=== PATIENT | male | born 1970 | race Native Hawaiian/Other Pacific Islander ===

== ENCOUNTER 2017-06-11 14:11 | Inpatient (IN) | payer OTHER ==
[~2017-06-11] VITALS: Ht 188 cm; Wt 129.5 kg
[2017-06-11 14:23] VITALS: BP 98/44; TEMP 98.9
[2017-06-11 15:55] LABS: PLATELET COUNT 126 K/uL (142-355)
[2017-06-11 16:22] LABS: POTASSIUM 3.2 mmol/L (3.6-5.2); SODIUM 134 mmol/L (136-145)
[2017-06-11 20:20] VITALS: BP 103/60
[2017-06-11 20:46] VITALS: BP 104/64
[2017-06-11 21:31] VITALS: BP 252/160
[2017-06-11 22:31] VITALS: BP 126/71
[2017-06-12] VITALS (7 sets, daily range): BP systolic 78–110; BP diastolic 42–80; TEMP 98.7–99.7; Ht 188 cm; Wt 129.5 kg
[2017-06-12 09:38] LABS: PLATELET COUNT 65 K/uL (142-355)
[2017-06-12 09:40] LABS: POTASSIUM 3.3 mmol/L (3.6-5.2)
[2017-06-13 00:16] VITALS: BP 94/53; TEMP 98
[2017-06-13 04:00] VITALS: BP 98/60; TEMP 98.1
[2017-06-13 06:11] LABS: POTASSIUM 3.2 mmol/L (3.6-5.2)
[2017-06-13 06:24] LABS: PLATELET COUNT 68 K/uL (142-355)
[2017-06-13 08:00] VITALS: BP 103/60; TEMP 97.8
[2017-06-13 12:00] VITALS: BP 102/58; TEMP 98
[2017-06-13 16:00] VITALS: BP 106/59; TEMP 98.7
[2017-06-13 20:00] VITALS: BP 113/60; TEMP 98.2
[2017-06-14] VITALS (7 sets, daily range): BP systolic 12–115; BP diastolic 57–71; TEMP 97.7–98.8
[2017-06-14 06:30] LABS: PLATELET COUNT 59 K/uL (142-355)
[2017-06-14 06:33] LABS: POTASSIUM 3.3 mmol/L (3.6-5.2)
[2017-06-15 04:00] VITALS: BP 108/74; TEMP 97.9
[2017-06-15 05:20] LABS: PLATELET COUNT 57 K/uL (142-355)
[2017-06-15 05:56] LABS: POTASSIUM 2.6 mmol/L (3.6-5.2)
[2017-06-15 08:00] VITALS: BP 106/67; TEMP 97.6
[2017-06-15 12:26] VITALS: BP 105/46; TEMP 97.4
[2017-06-15 16:00] VITALS: BP 119/79; TEMP 97.6
[2017-06-15 16:38] LABS: PLATELET COUNT 68 K/uL (142-355)
[2017-06-15 16:46] LABS: POTASSIUM 3.2 mmol/L (3.6-5.2)
[2017-06-15 20:00] VITALS: BP 126/67; TEMP 97.7
[2017-06-16] VITALS: BP 113/63; TEMP 97.8
[2017-06-16 04:00] VITALS: BP 132/75; TEMP 97.7
[2017-06-16 06:11] LABS: PLATELET COUNT 72 K/uL (142-355)
[2017-06-16 06:50] LABS: POTASSIUM 3.1 mmol/L (3.6-5.2)
[2017-06-16 08:00] VITALS: BP 104/63; TEMP 98.8
[2017-06-16] MEDS ORDERED: ZINC220C4 PO (10:33)
[2017-06-16] MEDS ORDERED: MAGN400T4 PO (10:33)
[2017-06-16] MEDS ORDERED: TAMS0.4C PO (10:33)
[2017-06-16] MEDS ORDERED: SPIR50TA8 PO (10:33)
[2017-06-16] MEDS ORDERED: CEPH500C20 PO (10:33)
== END 2017-06-16 12:10 | disposition home or self-care (01) | DRG 602 ==
LOC: ED 14:11 → MED/SURG 15:37
PROVIDERS: Family Medicine; Internal Medicine; ADMIT Specialist
PROC: 30233N1 Transfusion of Nonautologous Red Blood Cells into Peripheral Vein, Percutaneous Approach (ICD-10-PCS; principal; 2017-06-13)
DX: L03.116 Cellulitis of left lower limb (principal); I50.33 Acute on chronic diastolic (congestive) heart failure; K92.1 Melena; R09.02 Hypoxemia; R33.8 Other retention of urine; E87.6 Hypokalemia; E83.42 Hypomagnesemia; G44.89 Other headache syndrome; D64.89 Other specified anemias
CPT/HCPCS: 36415; 36430; 36600; 51702; 80053; 80307; 80320; 81000; 82150; 82550; 82553; 82805; 83605; 83690; 83735; 83880; 84484; 85014; 85018; 85027; 85379; 86850; 86900; 86901; 86922; 87040; 93005; 94640; 94664; 94760; 96365; 96372; 99284; J0696; J1644; J1940; J2060; J2930; J3475; J3480; P9016; Q9963

== ENCOUNTER 2017-07-08 14:08 | Observation (INO) | payer OTHER ==
[~2017-07-08] VITALS: Ht 188 cm; Wt 121.8 kg
[~2017-07-08 14:08] MED LIST: CEPH500C20 PO; MAGN400T4 PO; SPIR50TA8 PO; TAMS0.4C PO; ZINC220C4 PO
[2017-07-08 15:00] VITALS: BP 124/77
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
[2017-07-08 16:00] VITALS: BP 132/84
--- NOTE | 2017-07-08 16:16 | NUR ---
PHONE CALL TO [facility],TALKED WITH TONIE TURPIN LPN. PSYCH CONSULT FOR DR CARABALLO. WILL SEND INFO REQUESTED TO [facility].
--- NOTE | 2017-07-08 16:22 | NUR ---
MEDICATION CLARIFICATION PER PHONE CALL TO DR JOHNSON OFFICE.LORENZO BANKS TALKED WITH DR FRIEND. NEW ORDERS.PT NOT ALLERGIC ZOFRAN PER PT & DR JOHNSON STAFF.
[2017-07-08 16:30] VITALS: BP 124/77; TEMP 98.8; Ht 188 cm; Wt 121.8 kg
[2017-07-08 16:38] LABS: PLATELET COUNT 131 K/uL (142-355)
[2017-07-08 16:53] LABS: PARTIAL THROMBOPLASTIN TIME 24.9 SECONDS (24.5-33.6)
--- NOTE | 2017-07-08 16:58 | NUR ---
INFO FOR PSYCH CONSULT TO DR CARABALLO/[place].
[2017-07-08 17:00] VITALS: BP 131/85
--- NOTE | 2017-07-08 17:09 | NUR ---
RESIRATORY THERAPY AT PATIENTS BEDSIDE GIVING SMOKING EDUCATION
--- NOTE | 2017-07-08 18:04 | NUR ---
PT SITTING UP IN BED WATCHING TV.
--- NOTE | 2017-07-08 18:47 | NUR ---
PATIENTS FSBS 119 PATIENT DRINKING THE SOUP OF CLEAR LIQUID DIET
--- NOTE | 2017-07-08 19:00 | NUR ---
PATIENT WATCHING TV AT PRESENT TIME. NO ACUTE DISTRESS NOTED. WILL CONTINUE TO MONITOR.
[2017-07-08 20:00] VITALS: BP 125/77
--- NOTE | 2017-07-08 20:00 | NUR ---
RECEIVED PATIENT IN PCU BED #1. PATIENT IS [id number]. SHIFT ASSESSMENT COMPLETED AT THIS TIME. PATIENT IS WATCHING TV WITH NO ACUTE DISTRESS NOTED. IV 18G NOTED TO THE LEFT WRIST SALINE LOCKED WITH NO S/S OF INFILTRATION NOTED. BED LOCKED IN LOW POSITION,SIDERAILS UP X2, CALL JIMENEZ WITHIN REACH.
--- NOTE | 2017-07-08 20:15 | NUR ---
HERE TO SEE PATIENT. 1013 FORM SIGNED. UPDATED ON PLACEMENT/PSYCH EVALUATION INFORMED INFORMATION SENT TO [facility]. STATED PATIENT MOSTLY LIKELY WOULD NOT QUALIFY DUE TO PATIENT'S AGE. INFORMED INFORMATION WOULD BE FAXED TO OTHER MENTAL HEALTH FACILITIES.
--- NOTE | 2017-07-08 20:30 | NUR ---
BILATERAL COMPRESSION STOCKING PLACED ON PATIENT WITHOUT DIFFICULTY. PATIENT TOLERATED WELL. BLE ELEVATED WELL.
--- NOTE | 2017-07-08 21:30 | NUR ---
CALLED BY THE [facility], FAX NUMBER GIVEN TO FAX PATIENT INFORMATION FOR POSSIBLE PLACEMENT.
--- NOTE | 2017-07-08 21:46 | NUR ---
PATIENT IS RESTING WITH EYES CLOSED AT THIS TIME. NO ACUTE DISTRESS NOTED. WILL CONTINUE TO MONITOR NEEDED.
[2017-07-08 22:00] VITALS: BP 122/80
--- NOTE | 2017-07-08 22:23 | NUR ---
BY THE [facility] CALLED REGARDING PATIENT LABS AND VITAL SIGNS. INFORMED THEY WOULD RETURN CALL SOON PHYSICIAN ACCEPTED PATIENT.
--- NOTE | 2017-07-08 23:00 | NUR ---
PATIENT ACCEPTED TO [facility] BY THE [facility] PER . WAS CALLED AND NOTIFIED ABOUT PATIENT ACCEPTANCE. IN AGREEANCE WITH PATIENT COULD BE TRANSFERRED IN THE MORNING. PATIENT IS CURRENTLY RESTING WITH EYES CLOSED IN BED WITH NO ACUTE DISTRESS NOTED. [facility] NOTIFIED ABOUT PATIENT TRANSFER THEY WILL BE HERE 07/09/17 AT 0600 TO TRANSFER PATIENT.
[2017-07-09] VITALS: BP 137/88
--- NOTE | 2017-07-09 00:10 | NUR ---
PATIENT IS CURRENTLY RESTING WITH EYES CLOSED. WILL CONTINUE TO MONITOR NEEDED.
--- NOTE | 2017-07-09 01:04 | NUR ---
PATIENT IS AWAKE AT THIS TIME WATCHING TV AT THIS MOMENT. OFFERED SOMETHING TO DRINK PATIENT STATED HE WAS "OK" AT THE MOMENT.WILL CONTINUE TO MONITOR NEEDED.
[2017-07-09 02:00] VITALS: BP 131/81
--- NOTE | 2017-07-09 02:00 | NUR ---
PATIENT UP AMBULATING TO THE BATHROOM. PATIENT VOIDED X1. AMBULATED BACK TO BED WITHOUT DIFFICULTY.
--- NOTE | 2017-07-09 03:09 | NUR ---
PATIENT IS RESTING WITH EYES CLOSED AT THIS TIME.
[2017-07-09 04:00] VITALS: BP 131/82
--- NOTE | 2017-07-09 04:35 | NUR ---
PATIENT AWAKE AMBULATING TO THE BATHROOM. PATIENT VOIDED X1. PATIENT INFORMED ABOUT TRANSFER TO FACILITY [facility]. PATIENT STATES " CAN I CALL MY I DID NOT KNOW I HAD TO DO ALL THIS, I THOUGHT I WAS GOING TO STAY HERE", INFORMED PATIENT ABOUT CURRENT SITUATION AND THAT CURRENT ACCEPTING FACILITY WOULD PROVIDE APPROPRIATE MENTAL HEALTH CARE. PATIENT VOICED VERBAL UNDERSTANDING.
--- NOTE | 2017-07-09 05:10 | NUR ---
IV TO THE LEFT WRIST REMOVED WITH TIP INTACT. GAUZE APPLIED AND SECURED WITH TAPE.
--- NOTE | 2017-07-09 05:20 | NUR ---
[facility] HERE TO TRANSFER PATIENT TO [facility] BY THE [facility]. NICOTINE PATCH ORDERED PER . APPLIED TO THE LEFT UPPER ARM. PATIENT TRANSFERED VIA STRETCHER WITHOUT DIFFICULTY. PATIENT COMPLIANT AND AGREES WITH TRANSFER AT THIS TIME.
== END 2017-07-09 05:20 | disposition other institution (70) ==
LOC: ICU 14:08
PROVIDERS: ADMIT Family Medicine
DX: R45.851 Suicidal ideations (principal); F32.89 Other specified depressive episodes; I50.9 Heart failure, unspecified; E66.8 Other obesity; F10.10 Alcohol abuse, uncomplicated; Z72.0 Tobacco use
CPT/HCPCS: 80053; 81000; 82140; 82550; 83735; 83874; 83880; 84100; 84484; 85027; 85610; 85730; 87040; 87205; 99220; G0378; G0379; G0436

== ENCOUNTER 2018-01-06 12:17 | Outpatient (CLI) | payer OTHER | END 2018-01-06 19:48 | disposition home or self-care (01) | LOC: RAD 12:17 | DX: I87.009 Postthrombotic syndrome without complications of unspecified extremity (principal) ==

== ENCOUNTER 2018-02-15 08:49 | Outpatient (CLI) | payer OTHER | END 2018-02-15 21:20 | disposition home or self-care (01) | LOC: RESP 08:49 | DX: G56.21 Lesion of ulnar nerve, right upper limb (principal); G56.03 Carpal tunnel syndrome, bilateral upper limbs; G60.8 Other hereditary and idiopathic neuropathies | CPT/HCPCS: 95887; 95911 ==

== ENCOUNTER 2020-12-02 13:47 | Emergency (ER) | payer OTHER ==
[~2020-12-02] VITALS: Ht 188 cm; Wt 134.7 kg
[2020-12-02 13:47] VITALS: TEMP 96.9
[2020-12-02 14:35] LABS: POTASSIUM 3.5 mmol/L (3.6-5.2)
[2020-12-02 14:45] LABS: PLATELET COUNT 140 K/uL (142-355)
[2020-12-02 15:26] LABS: PARTIAL THROMBOPLASTIN TIME 24.4 SECONDS (24.5-33.6)
[2020-12-02 15:50] VITALS: BP 101/64
== END 2020-12-02 16:15 | disposition short-term general hospital (02) ==
LOC: ED 13:47
PROVIDERS: Emergency Medicine
PROC: 08QPXZZ Repair Left Upper Eyelid, External Approach (ICD-10-PCS; principal; 2020-12-02)
PROC: 0HQ1XZZ Repair Face Skin, External Approach (ICD-10-PCS; 2020-12-02)
PROC: 2W3DX1Z Immobilization of Left Lower Arm using Splint (ICD-10-PCS; 2020-12-02)
DX: S02.85XA Fracture of orbit, unspecified, initial encounter for closed fracture (principal); S05.8X2A Other injuries of left eye and orbit, initial encounter; S01.112A Laceration without foreign body of left eyelid and periocular area, initial encounter; S62.391A Other fracture of second metacarpal bone, left hand, initial encounter for closed fracture; I50.9 Heart failure, unspecified; Z11.52 Encounter for screening for COVID-19; W20.8XXA Other cause of strike by thrown, projected or falling object, initial encounter; Y92.89 Other specified places as the place of occurrence of the external cause
CPT/HCPCS: 80053; 85027; 85610; 85730; 87635; 90471; 90715; 96365; 96375; 96376; 99285; J0696; J2175; J2405; U0003